=== PATIENT | male | born 1925 | race Caucasian/White ===

== ENCOUNTER 2016-08-17 07:24 | Emergency (ER) | payer MEDICARE ==
[~2016-08-17] VITALS: Ht 175.3 cm; Wt 81.6 kg
[2016-08-17 07:28] VITALS: BP 125/60; PULSE 51; RESP 16; TEMP 98.3; O2SAT 95
[2016-08-17] MEDS ORDERED: PRED5TAB PO (07:53)
[2016-08-17] MEDS ORDERED: ASPI81CH37 CHEW (07:53)
[2016-08-17] MEDS ORDERED: ROSU10 PO (07:53)
[2016-08-17] MEDS ORDERED: CORT1SOL LEFT EAR (07:58)
--- NOTE | 2016-08-17 07:58 | PD ---
HPI Chief Complaint: Foreign Body Time Seen by Provider: 07:43 Travel History International Travel<30 days: No Contact w/Intl Traveler<30days: No Traveled to known affect area: No History of Present Illness HPI The patient is a 89-year-old male who presents emergency department for foreign-body into the left ear canal. The patient has a history of wax impaction, stocky paperclip into the left external auditory canal to clean his wax, when he pulled it out, he pulled through part of the ear. The patient does note a small amount of blood with the paperclip perforated the skin. He is able to hear out of the left ear. He cannot recall his last tetanus shot. The patient's symptoms are moderate, exacerbated after he stuck a paperclip in the left ear canal. PFSH Past Medical History Hx Anticoagulant Therapy: Yes (BABY ASA DAILY) Cerebrovascular Accident: Yes (TIA) Diabetes: No Tetanus Vaccination: > 5 Years Social History Alcohol Use: No Tobacco Use: No Substance Use: No Allergies-Medications (Allergen,Severity, Reaction): Coded Allergies: No Known Allergies (Unverified , 08/17/16) Reported Meds & Prescriptions Reported Meds & Active Scripts Active Reported Crestor (Rosuvastatin Calcium) 10 Mg Tab 10 Mg PO DAILY Aspirin Low Dose (Aspirin) 81 Mg Chew 81 Mg CHEW DAILY Prednisone 5 Mg Tab 5 Mg PO DAILY Review of Systems General / Constitutional: No: Fever HENT: Positive: Other (as noted in the history of present illness), No: Vertigo, Lightheadedness Skin: Positive Other (as noted in the history of present illness) Neurologic: No: Dizziness Physical Exam Narrative GENERAL: Awake, alert, pleasant 89-year-old male who appears his stated age and is in no acute respiratory distress. SKIN: Focused skin assessment warm/dry. HEAD: Atraumatic. Normocephalic. EYES: Pupils equal and round. No scleral icterus. No injection or drainage. ENT: No nasal bleeding or discharge. Mucous membranes pink and moist. The right EAC has a large amount of cerumen. The left EAC has a visible paperclip that is perforated through the posterior aspect of the ear, is visible U-shaped through and through. NECK: Trachea midline. No JVD. MUSCULOSKELETAL: No obvious deformities. No clubbing. No cyanosis. No edema. NEUROLOGICAL: Awake and alert. No obvious cranial nerve deficits. Motor grossly within normal limits. Normal speech. PSYCHIATRIC: Appropriate mood and affect; insight and judgment normal. Data Data Last Documented VS Vital Signs Date Time Temp Pulse Resp B/P Pulse Ox O2 Delivery O2 Flow Rate FiO2 08/17/16 07:28 98.3 51 16 125/60 95 Orders Ear Irrigation (08/17/16 07:53) Tetanus/Diphtheria Tox Adult (Tetanus/Di (08/17/16 08:00) MDM Medical Decision Making Medical Screen Exam Complete: Yes Emergency Medical Condition: Yes Medical Record Reviewed: Yes Differential Diagnosis Differential diagnosis includes foreign body left ear canal, cerumen impaction, perforated tympanic membrane, otitis externa. Narrative Course The patient's paper clip at perforated through the ear, it was visible is a through and through, U-shaped metal through the posterior lobe. There are cutter was used to cut the large part of the paperclip off, it was then removed using alligator forceps. Visualization a left tympanic membranes reveals no visible perforation. The patient had the right ear irrigated in the emergency department. The patient's tetanus shot was updated and he will be placed on eardrops. Diagnosis Primary Impression: Foreign body in left ear lobe Qualified Code: S00.452A - Foreign body in left ear lobe, initial encounter Patient Instructions: General Instructions Additional Instructions: Do not put any foreign objects into your ear. Follow-up with your primary physician. Eardrops as directed. Return if symptoms worsen or progress. Med/Other Pt SpecificInfo: Prescription(s) given Scripts Foybywvu-Qoyfyefxx-YD Otic Drops (Cortisporin HC Otic Drops)3.5-10,000-1 Mg- Units-% Soln4 Drop LEFT EAR QID 5 Days Ref 0 Prov:Roger Velazquez MD 08/17/16 Disposition: 01 DISCHARGE HOME Condition: Stable Roger Velazquez MD Aug 17, 2016 07:58
[2016-08-17] MEDS ORDERED: TETANUS/DIPHTHERIA TOXOID ADULT 0.5 ML VIAL IM ONE (08:00)
== END 2016-08-17 08:31 | disposition home or self-care (01) ==
LOC: PHED 07:24
DX: S00.452A Superficial foreign body of left ear, initial encounter (principal); Z23 Encounter for immunization; Z86.73 Personal history of transient ischemic attack (TIA), and cerebral infarction without residual deficits; Z79.82 Long term (current) use of aspirin; W45.8XXA Other foreign body or object entering through skin, initial encounter; Y93.E8 Activity, other personal hygiene; Y92.009 Unspecified place in unspecified non-institutional (private) residence as the place of occurrence of the external cause; Y99.8 Other external cause status
CPT/HCPCS: 90471; 90714